=== PATIENT | male | born 1965 | race Caucasian/White ===

== ENCOUNTER 2019-04-30 17:28 | Inpatient (IN) ==
[2019-04-30 18:14] LABS: BASO# 0.05 X1000 (0.0-0.2); BASO% 0.3 % (0.0-0.8); EOS# 0.06 X1000 (0.0-0.7); EOS% 0.4 % (0.0-10.0); HEMATOCRIT 26.8 % (42.0-52.0); HEMOGLOBIN 8.5 g/dL (14.0-18.0); IMM GRAN# 0.06 X1000 (0.0-0.04); IMM GRAN% 0.4 % (0.0-0.5); LYMPH# 2.36 X1000 (1.2-3.4); LYMPH% 14.2 % (20.5-51.1); MCH 23.9 PG (27-31); MCHC 31.7 g/dL (33-37); MCV 75.3 FL (81-99); MONO% 10.8 % (1.7-9.3); MPV 9.1 FL (7.4-10.4); NEUT# 12.28 X1000 (1.4-6.5); NEUT% 73.9 % (42.2-75.2); PLT 349 X1000 (130-400); RBC 3.56 XMIL (4.7-6.1); RDW 19.9 % (11.5-14.5); WBC 16.61 X1000 (4.8-10.8)
[2019-04-30 18:26] LABS: INR 1.02; PROTIME 14.2 Seconds (11.0-16.0)
[2019-04-30 18:27] LABS: PTT 38.6 Seconds (22.3-41.8)
[2019-04-30 18:35] LABS: AGAP 14; ALB/GLOB RATIO 0.8; ALKALINE PHOSPHATASE 167 U/L (32-122); BUN 5 mg/dL (8-22); CALCIUM 8.3 mg/dL (8.8-10.2); CHLORIDE 90 mmol/L (98-107); CK PROFILE 43 U/L (24-204); COSMO 257; CREATININE 0.6 mg/dL (0.7-1.2); ESTIMATED GFR > 60; GLUCOSE 118 mg/dL (70-104); GOT 39 U/L (10-34); GPT 12 U/L (10-44); POTASSIUM 2.6 mmol/L (3.5-5.1); SODIUM 129 mmol/L (136-145); TCO2 25 mmol/L (25-35); TOTAL BILIRUBIN 0.37 mg/dL (0.20-1.00); TOTAL PROTEIN 6.7 g/dL (6.3-8.3)
--- NOTE | 2019-04-30 18:53 | Diag Imaging Result Doc PS360 ---
EXAM: CHEST-1 VIEW HISTORY: SOB/POSSIBLE SEPSIS TECHNIQUE: Portable chest single view COMPARISON: 04/19/2014 FINDINGS: There are infiltrates and cavities in the upper lungs. The one on the left has developed since the prior exam. The one on the right is fairly similar to the prior study. The lungs are well expanded. No pulmonary edema. No cardiomegaly. No pleural effusions identified. IMPRESSION: Likely cavitary pneumonia as well as fibrosis Electronically signed by Tyson Beck 04/30/2019 6:50 PM
[2019-04-30] MEDS ORDERED: TUBERSOL ID ONE (19:11)
[2019-04-30] MEDS ORDERED: ROCEPHIN 1 GM in NS 50 ML IV ONE (19:18)
[2019-04-30] MEDS ORDERED: ZITHROMAX PO ONE (19:18)
[2019-04-30] MEDS ORDERED: NS 1,000 ML IV ONE ×2 (19:19→19:20)
--- NOTE | 2019-04-30 19:23 | PROVIDER DOCUMENTATION ---
HPI-General Adult - General Chief Complaint: SEPSIS ALERT - D Stated Complaint: SOB,LEGS WEAK Time Seen by Provider: 04/30/19 19:08 Source: patient Allergies/Adverse Reactions: Patient Allergies Allergy/AdvReac Type Severity Reaction Status Date / Time celecoxib [From Celebrex] Allergy Intermediate NAUSEA/VOMI Verified 04/19/14 09:41 TING Home Medications: Home Medication List Medication Instructions Recorded Confirmed Last Taken Type Amoxicillin/Potassium Clav 1 each PO DAILY #0 tablet 04/22/14 Unknown Rx [Augmentin 875-125 Tablet] Enoxaparin [Lovenox] 40 mg SUBQ Q24H #0 syringe 04/22/14 Unknown Rx Hydrocodone/APAP 7.5 mg/325 mg 1 each PO Q4H PRN PRN #0 tablet 04/22/14 Unknown Rx [Arthur-7.5] - History of Present Illness -Gen Adult Nature of Presenting Problems: C/O no energy, and a 5 lb wt loss since helping friend move [employer] 7 days ago. No fever. Has cough prod of yellow sputum , but no hemoptysis. Has BACA, but no SOB @ rest. He initially had refused IV until labs showed he needed it. Does not remember ever having PPD Location of Pain/Injury: reports: none Similar Symptoms Previously?: No Recently seen or treated by another doctor?: No Review of Systems - Adult - REVIEW OF SYSTEMS - ADULT Constitutional: reports: see HPI, fatique, weight loss Eyes: reports: no symptoms reported Ears, Nose, Mouth & Throat: reports: no symptoms reported Cardiovascular: reports: no symptoms reported Respiratory: reports: see HPI Gastrointestinal: reports: no symptoms reported Genitourinary: reports: no symptoms reported Musculoskeletal: reports: no symptoms reported Integumentary: reports: no symptoms reported Neurological: reports: no symptoms reported Psychiatric: reports: no symptoms reported Endocrine: reports: no symptoms reported Hematologic/Lymphatic: reports: no symptoms reported Allergic/Immunologic: reports: no symptoms reported Past History - Adult - PAST MEDICAL HISTORY-ADULT Review of Records: reports: Medications Reviewed Major Childhood Illnesses: reports: denies history Cardiovascular: reports: denies history Respiratory: reports: denies history Obstetrical/Gynecological: reports: denies history Genitourinary: reports: denies history Musculoskeletal: reports: denies history Neurological: reports: denies history Psychiatric: reports: denies history Endocrine/Immune: reports: denies history - SOCIAL HISTORY Smoking: cigarettes (1/2 ppd) Physical Exam-General - PHYSICAL EXAM-ADULT Initial Vital Signs Reviewed: Yes - CONSTITUTIONAL General Appearance: appears well, alert, no apparent distress - EYES Eyes: PERRL/EOMI, pink conjunctivae - HEAD, EARS, NOSE, MOUTH & THROAT HENMT: normocephalic/atraumatic, moist mucous membranes, normal ENT inspection, pharynx normal - NECK Neck: full range of motion, supple, normal inspection - RESPIRATORY Respiratory: lungs clear, normal breath sounds, no pleuratic chest pain, no respiratory distress, no accessory muscle use - CARDIOVASCULAR Cardiovascular: no edema, no gallop, no murmur, tachycardia - GASTROINTESTINAL (ABDOMEN) Abdominal Exam: non tender, soft - MUSCULOSKELETAL Back Exam: normal inspection, no CVA tenderness, no vertebral tenderness Extremity: normal range of motion, non-tender, normal gait, normal inspection, no pedal edema - SKIN Integumentary: normal color, normal turgor, warm/dry - NEUROLOGIC Neurologic: sustainability project coordinator II-XII nml as tested, grossly normal, no motor/sensory deficits - PSYCHIATRIC Psych/Mental Status: normal mood/affect, normal thought content, normal thought process, oriented x 3 Progress - PLAN OF CARE/RESULTS Progress/Plan/Lab Results: Vital Signs - 8 hr 04/30/19 17:33 Temperature 98.4 F Pulse Rate 102 H Respiratory Rate 24 Blood Pressure 129/76 O2 Sat by Pulse Oximetry 99 Laboratory Results - last 24 hr 04/30/19 04/30/19 04/30/19 17:50 17:50 17:50 WBC 16.61 H RBC 3.56 L Hgb 8.5 L Hct 26.8 L MCV 75.3 L MCH 23.9 L MCHC 31.7 L RDW Std Deviation 19.9 H Plt Count 349 MPV 9.1 Immature Gran % (Auto) 0.4 Neut % (Auto) 73.9 Lymph % (Auto) 14.2 L [place] % (Auto) 10.8 H Eos % (Auto) 0.4 Baso % (Auto) 0.3 Immature Gran # (Auto) 0.06 H Neut # (Auto) 12.28 H Lymph # (Auto) 2.36 [place] # (Auto) 1.80 H Eos # (Auto) 0.06 Baso # (Auto) 0.05 PT INR PTT (Actin FS) Sodium 129 L Potassium 2.6 L Chloride 90 L Carbon Dioxide 25 Anion Gap 14 BUN 5 L Creatinine 0.6 L Estimated GFR/1.73 m2 > 60 BUN/Creatinine Ratio 8 Glucose 118 H Calculated Osmolality 257 Calcium 8.3 L Total Bilirubin 0.37 AST 39 H ALT 12 Alkaline Phosphatase 167 H Creatine Kinase 43 Troponin T Total Protein 6.7 Albumin 3.0 L Globulin 3.7 Albumin/Globulin Ratio 0.8 Plasma Lactate 2.9 H 04/30/19 04/30/19 17:50 17:50 WBC RBC Hgb Hct MCV MCH MCHC RDW Std Deviation Plt Count MPV Immature Gran % (Auto) Neut % (Auto) Lymph % (Auto) [place] % (Auto) Eos % (Auto) Baso % (Auto) Immature Gran # (Auto) Neut # (Auto) Lymph # (Auto) [place] # (Auto) Eos # (Auto) Baso # (Auto) PT 14.2 INR 1.02 PTT (Actin FS) 38.6 Sodium Potassium Chloride Carbon Dioxide Anion Gap BUN Creatinine Estimated GFR/1.73 m2 BUN/Creatinine Ratio Glucose Calculated Osmolality Calcium Total Bilirubin AST ALT Alkaline Phosphatase Creatine Kinase Troponin T < 0.010 Total Protein Albumin Globulin Albumin/Globulin Ratio Plasma Lactate Orders Category Date Time Status Cardiac Monitoring DIRECTED Care 04/30/19 18:01 Active IV Insertion ORDERED Care 04/30/19 18:01 Active Notify MD of + Sepsis Screen NOW Care 04/30/19 18:01 Active Notify Physician As Ordered Care 04/30/19 18:01 Active TB Skin Test Follow Up ONCE Care 05/02/19 19:11 Ordered CHEST-1 VIEW [RAD] Stat Exams 04/30/19 18:01 Completed BLOOD CULTURE [BLDCUL] Stat Lab 04/30/19 18:01 Received CBC WITH DIFF [HEME] Stat Lab 04/30/19 17:50 Completed CK PROFILE [SP CHEM] Stat Lab 04/30/19 17:50 Completed COMPREHENSIVE METABOLIC PANEL [CHEM] Stat Lab 04/30/19 17:50 Completed LACTATE, PLASMA [CHEM] Lab 04/30/19 21:15 Uncollected LACTATE, PLASMA [CHEM] Lab 05/01/19 00:15 Uncollected LACTATE, PLASMA [CHEM] Q3H Lab 04/30/19 17:50 Completed PROTIME WITH INR [COAG] Stat Lab 04/30/19 17:50 Completed PTT [COAG] Stat Lab 04/30/19 17:50 Completed TROPONIN T Stat Lab 04/30/19 17:50 Completed URINALYSIS W/POSS RFLX CULT [URINALYSIS] Stat Lab 04/30/19 18:01 Uncollected Tuberculin,Purif.prot.deriv. [Tubersol] Med 04/30/19 19:11 Once 5 units ID NOW ONE Oxygen Device Stat Oth 04/30/19 18:01 Active Result Diagrams: 04/30/19 17:50 04/30/19 17:50 - CONSULTS/PCP/HOSPITALIST Notification #1 *Consult/PCP/Hospitalist*: Varinder Time Discussed: 20:20 Consult Disposition: Will see in ED, Admit Departure - Departure Date of Disposition Decision: 04/30/19 Time of Disposition Decision: 19:26 DIAGNOSIS: Pneumonia of both upper lobes, SIRS (systemic inflammatory response syndrome), Anemia Disposition: ADMITTED INPATIENT 09 Certified Medical Emergency: Emergent Condition: Good Referrals and Follow-Ups: Kerrie Hurt CRNP [Primary Care Provider] - Discharge Education: Steps to Quit Smoking, [id number] - Critical Care Note This patient required my direct & personal management of CC.: No Attestation - Physician/ ROSA ELENA Attestation Patient care was provided by Advanced Practice Provider:: No The physician spent face to face time with patient:: Yes Advanced Practice Provider documentation review:: Supervising physician onsite and consulted in the evaluation and care of this patient. The physician did have a face to face encounter with the patient.
[2019-04-30 19:25] LABS: URINE SOURCE CLEAN CATCH
--- NOTE | 2019-04-30 19:27 | ED EKG INTERP ---
This chart was entered by Rupinder Daniel Scribe, acting as scribe for Clint Mohr MD. EKG Interpretation - EKG Time of EKG reading by physician:: 17:42 EKG Read and Signed by:: Clint Mohr EKG Interpretation (*Must complete 3 of following elements*): Abnormal Rate: 103 Rhythm: [facility] [place]: normal QRS: normal [place] Interval: normal ST Wave: normal Comments: Septal infarct, age undetermined Attestation - Physician/ ROSA ELENA Attestation Patient care was provided by Advanced Practice Provider:: No The physician spent face to face time with patient:: Yes Advanced Practice Provider documentation review:: Supervising physician onsite and consulted in the evaluation and care of this patient. The physician did have a face to face encounter with the patient. This chart was documented by the indicated scribe, (Rupinder Daniel Scribe) and accurately reflects the services I performed and decisions made by me, Clint Mohr MD, as attested by the provider's signature.
[2019-04-30 19:38] LABS: BILIRUBIN URINE NEGATIVE (NEGATIVE); BLOOD URINE NEGATIVE (NEGATIVE); COLOR YELLOW; GLUCOSE URINE NEGATIVE (NEGATIVE); KETONE URINE NEGATIVE (NEGATIVE); LEUKOCYTES URINE NEGATIVE (NEGATIVE); NITRITE URINE NEGATIVE (NEGATIVE); PH URINE 6.5; PROTEIN URINE TRACE mg/dL (NEGATIVE); SP GRAVITY URINE 1.001; TURBIDITY URINE CLEAR (CLEAR); UROBILINOGEN URINE 8 mg/dL (NORMAL)
[2019-04-30 19:40] LABS: UR EPITHELIAL CELLS <10 /HPF (<10); URINE BACTERIA NEGATIVE /HPF; URINE RBC <10 /HPF (<10); URINE WBC <10 /HPF (<10)
[2019-04-30] MEDS ORDERED: POTASSIUM CHLORIDE 20% LIQUID PO ONE (20:03)
--- NOTE | 2019-04-30 22:22 | HISTORY AND PHYSICAL ---
PRIMARY CARE PROVIDER: Kerrie Hurt. CHIEF COMPLAINT: Weakness, weight loss, coughing for several weeks. HISTORY OF PRESENTING ILLNESS: A 53-year-old male without any significant past medical history had presented to emergency department with complaint of several weeks history of worsening weakness, weight loss and cough. He states the cough was productive of yellowish material and he was not feeling well. The patient subsequently had come to the emergency department. He had imaging done which did show cavitary pneumonia. Due to his presenting symptoms, he will require admission for further management. At the time my examination patient denied any headache, fever, chills, chest pain, hemoptysis but complained of weight loss, shortness of breath and not feeling well. PAST MEDICAL HISTORY: None. PAST SURGICAL HISTORY: Left hip surgery, right carpal tunnel surgery. ALLERGIES: Celebrex. CURRENT MEDICATIONS: None. SOCIAL HISTORY: 40+ pack year history of smoking, history of alcohol abuse in the past. History of marijuana use. FAMILY HISTORY: No history of coronary disease. REVIEW OF SYSTEMS: Fourteen point review of system is as in HPI. Other systems negative. PHYSICAL EXAMINATION: GENERAL: Cooperative, friendly male resting more comfortably now. Patient looks somewhat malnourished. VITAL SIGNS: Temperature 98.4 degrees, pulse 102, respirations 24, blood pressure 129/76. HEENT: Atraumatic, normocephalic. Extraocular movements intact. PERRLA. NECK: Supple. CHEST: Bibasilar rales. CARDIOVASCULAR: Regular rate and rhythm. ABDOMEN: Soft. Positive bowel sounds. EXTREMITIES: No edema. NEUROLOGIC: He is awake, alert, oriented x3. : No bladder distention. SKIN: Warm. LABORATORIES AND STUDIES: Sodium 129, potassium 2.6, chloride 90, CO2 25, BUN is 5, creatinine 0.6, glucose is 118. WBC 16.61, hemoglobin 8.5, hematocrit 26.8, platelets 349,000. ASSESSMENT: A 53-year-old male without any significant past medical history presented to emergency department several weeks history of worsening productive cough, weight loss and weakness. He was evaluated in the emergency department. He had imaging done which did show cavitary pneumonia and also laboratory showed that he was hypokalemic. Due to his presenting symptoms he will require admission further management. 1. Cavitary pneumonia. 2. Generalized weakness. 3. Hypokalemia. PLAN: 1. We will admit patient to medical floor with telemetry. 2. We will keep him in isolation till we obtain results of his TB testing. 3. We will check blood cultures. Start patient on IV antibiotics. 4. Continue with gentle hydration. 5. Replace his electrolytes and monitor potassium. 6. We will put patient on DVT prophylaxis SCD. 7. We will continue to follow and reassess. Make further recommendation based on patient's clinical course. cc: Benedict Reeder MD
[2019-05-01] MEDS ORDERED: ZITHROMAX 500 MG/NS 500 MG/250 ML IVPB IV SCH (02:06)
[2019-05-01] MEDS ORDERED: ROCEPHIN 1 GM in NS 50 ML IV SCH (02:06)
[2019-05-01] MEDS: NS + KCL 20 MEQ 1,000 ML IV SCH ×4 (03:01→18:14)
[2019-05-01 06:23] LABS: BASO# 0.04 X1000 (0.0-0.2); BASO% 0.2 % (0.0-0.8); EOS# 0.02 X1000 (0.0-0.7); EOS% 0.1 % (0.0-10.0); HEMATOCRIT 25.9 % (42.0-52.0); IMM GRAN# 0.05 X1000 (0.0-0.04); IMM GRAN% 0.3 % (0.0-0.5); LYMPH# 1.33 X1000 (1.2-3.4); LYMPH% 7.7 % (20.5-51.1); MCH 23.7 PG (27-31); MCHC 30.9 g/dL (33-37); MCV 76.6 FL (81-99); MONO# 1.54 X1000 (0.11-0.59); MONO% 8.9 % (1.7-9.3); MPV 9.4 FL (7.4-10.4); NEUT# 14.33 X1000 (1.4-6.5); NEUT% 82.8 % (42.2-75.2); PLT 320 X1000 (130-400); RBC 3.38 XMIL (4.7-6.1); RDW 20.3 % (11.5-14.5); WBC 17.31 X1000 (4.8-10.8)
[2019-05-01 06:45] LABS: AGAP 11; BUN 3 mg/dL (8-22); CALCIUM 7.4 mg/dL (8.8-10.2); CHLORIDE 100 mmol/L (98-107); COSMO 261; CREATININE 0.4 mg/dL (0.7-1.2); ESTIMATED GFR > 60; GLUCOSE 95 mg/dL (70-104); POTASSIUM 3.3 mmol/L (3.5-5.1); SODIUM 132 mmol/L (136-145); TCO2 21 mmol/L (25-35)
[2019-05-01] MEDS ORDERED: ATIVAN IV PRN (06:46)
[2019-05-01] MEDS ORDERED: VANCOMYCIN IV PER PHARMACY MISC SCH (07:00)
--- NOTE | 2019-05-01 07:54 | EKG Report ---
Test Performed on : 04/30/2019 5:33:51 PM Test Reason : ED. NO EKG ORDER FOR MUSE Blood Pressure : / mmHG Vent. Rate : 103 BPM Atrial Rate : 103 BPM P-R Int : 142 ms QRS Dur : 078 ms QT Int : 354 ms P-R-T Axes : 079 076 082 degrees QTc Int : 463 ms Sinus tachycardia. Septal infarct , age undetermined Abnormal ECG When compared with ECG of 20-APR-2014 07:32, No significant change was found Unconfirmed Result
--- NOTE | 2019-05-01 07:56 | EKG Report ---
Test Performed on : 04/30/2019 9:22:55 PM Test Reason : ED. NO EKG ORDER FOR MUSE Blood Pressure : / mmHG Vent. Rate : 111 BPM Atrial Rate : 111 BPM P-R Int : 142 ms QRS Dur : 072 ms QT Int : 362 ms P-R-T Axes : 070 073 083 degrees QTc Int : 492 ms Sinus tachycardia. Otherwise normal ECG When compared with ECG of 30-APR-2019 17:33, (Unconfirmed) Criteria for Septal infarct are no longer present Unconfirmed Result
[2019-05-01] MEDS: ZOSYN 3.375 GM in NS 50 ML IV SCH ×3 (08:06→20:13)
--- NOTE | 2019-05-01 08:19 | INFECTIOUS DISEASE CONSULT REP ---
DATE: 05/01/2019 DISCUSSION: The patient tells me that in the past week, he has developed a decrease in his energy, and a cough productive of a [id number] sputum. He has lost 2 pounds in the past week. He is not having night sweats. He has not noticed any blood in his sputum. IMAGING AND LABORATORY DATA: His laboratory data thus far shows a CBC with a white count of 17,310, hemoglobin 8, and platelet count 320,000. Creatinine is 0.6. GFR is greater than 60. Alkaline phosphatase is 167. Urinalysis shows no white cells or bacteria. Blood cultures are pending. Chest x-ray shows bilateral upper lobe cavitary infiltrates. PAST MEDICAL HISTORY/REVIEW OF SYSTEMS: Eyes and Ears: He wears glasses. His hearing is okay. Bones/Joints/Muscles: He has had pain in his left knee for years. It occasionally swells. He does not have any muscle aches. Neck: No stiffness. Respiratory: See present illness. GI: No nausea, vomiting, or diarrhea. : No dysuria or flank pain. Endocrine: The patient is not a diabetic, and he does not have any thyroid disease. Integument: No rash. PREVIOUS HOSPITALIZATIONS AND OPERATIONS: He fractured his left hip, and has had surgery on it. He also has had a right arm carpal tunnel surgery. MEDICAL DISEASES: Positive for osteoarthritis. Negative for diabetes. INFECTIOUS DISEASE HISTORY: Positive for pneumonia as a child. No history of urinary tract infection. FAMILY HISTORY: Positive for hypertension and cancer. SOCIAL HISTORY[place] . He has dogs for pets. The patient is disabled. He smokes cigarettes, drinks alcoholic beverages, and uses marijuana. ALLERGIES: He is allergic to Celebrex. HOME MEDICATIONS: The only one listed is Goody's powder. PHYSICAL EXAMINATION: Vital Signs: Temperature is 98.8 degrees, pulse 118, respirations 20, blood pressure 144/86. The patient weighs 102 pounds. General: This is a chronically ill and malnourished-appearing, middle-aged male. He is in no acute distress. HEENT: He can hear my spoken words and see near objects. He does not have any white patches in his mouth. His teeth seem to be in poor dental repair. Neck: No meningismus. Lungs: Clear to auscultation. Cardiovascular: Heart rate was regular and rapid. Abdomen: Soft and nontender. Neurologic: The patient is alert. He can move his extremities. There is no tremor. His sensation is intact to touch. His memory as regarding his medical history seems intact. Integument: No rash noted. CONCLUSION: The patient is admitted to the hospital with bilateral upper lobe cavitary pneumonia. I think tuberculosis certainly is a consideration. Also, the patient tells me that he drinks quite a bit of alcohol, and he may have developed an aspiration pneumonia. RECOMMENDATIONS: I agree with putting on a skin test and getting a QuantiFERON. I have ordered sputum for acid-fast smear and culture, and I have also ordered sputum for regular bacterial culture. I have discontinued Rocephin and azithromycin, and instead I put the patient on vancomycin and Zosyn. Some of the side effects of the antibiotics, including rash, diarrhea, renal toxicity, and ototoxicity have been explained to the patient, who agrees with treatment. Thank you for the consult. cc: Mike Metz MD
[2019-05-01] MEDS ORDERED: VANCOMYCIN 1,600 MG in NS 250 ML IV ONE (09:00)
[2019-05-01] MEDS ORDERED: LIBRIUM PO PRN (14:56)
[2019-05-01] MEDS ORDERED: KLOR-CON PO ONE (14:58)
--- NOTE | 2019-05-01 15:11 | PROGRESS NOTE ---
DATE: 05/01/2019 SUBJECTIVE: The patient resting in bed. OBJECTIVE: Vital signs: Temperature 98.6 degrees, pulse is 113, respiratory rate 16, blood pressure 145/92, oxygen saturation 100%. HEENT: Atraumatic, normocephalic. Cardiovascular System: S1, S2. Respiratory system has evidence of good air entry bilaterally. Abdomen is soft, nontender. No masses felt. Extremities: No evidence of edema. Central Nervous System: No obvious focal deficits noted. LABORATORIES: WBC 17.31, hematocrit is 25.9 ,with a platelet count of 320. Sodium is 132, potassium 3.3, chloride 100, bicarbonate 21, BUN is 3, creatinine 0.4. ASSESSMENT AND PLAN: 1. Cavitary pneumonia. Follow up on sputum as well as blood cultures. The patient currently on isolation. Workup for TB in progress. Infectious Disease managing antibiotics. 2. Anemia. We will check iron studies as well as B12 and folate levels. 3. Hypokalemia. Replace potassium. Check magnesium level. 4. Alcoholism. Maintain patient on delirium tremens prophylaxis, along with thiamine, folic acid, as well as multivitamin. Check magnesium and phosphorus levels and correct those if needed. 5. Deep vein thrombosis prophylaxis. Sequential compression devices. 6. Gastrointestinal prophylaxis. Proton pump inhibitor. cc: Josse Loyola MD
[2019-05-01 15:53] LABS: IRON SATURATION 10 %; TIBC 206 ug/dL; TOTAL IRON 21 ug/dL (53-167); UNBOUND IRON 185 ug/dL (112-346)
[2019-05-01 16:12] LABS: FERRITIN 38 ng/mL (30-400)
[2019-05-01] MEDS: VANCOMYCIN 1,250 MG in NS 250 ML IV SCH (22:46)
[2019-05-02] MEDS: ZOSYN 3.375 GM in NS 50 ML IV SCH ×5 (01:45→23:20)
[2019-05-02] MEDS: PROTONIX PO SCH (06:54)
[2019-05-02 07:17] LABS: BASO# 0.06 X1000 (0.0-0.2); BASO% 0.5 % (0.0-0.8); EOS# 0.05 X1000 (0.0-0.7); EOS% 0.4 % (0.0-10.0); HEMATOCRIT 25.6 % (42.0-52.0); HEMOGLOBIN 7.7 g/dL (14.0-18.0); IMM GRAN# 0.03 X1000 (0.0-0.04); IMM GRAN% 0.2 % (0.0-0.5); MCH 23.7 PG (27-31); MCHC 30.1 g/dL (33-37); MCV 78.8 FL (81-99); MONO# 1.19 X1000 (0.11-0.59); MONO% 9.7 % (1.7-9.3); MPV 9.5 FL (7.4-10.4); NEUT# 9.81 X1000 (1.4-6.5); NEUT% 80.2 % (42.2-75.2); PLT 301 X1000 (130-400); RBC 3.25 XMIL (4.7-6.1); RDW 21.1 % (11.5-14.5); WBC 12.24 X1000 (4.8-10.8)
[2019-05-02 07:39] LABS: AGAP 11; BUN 3 mg/dL (8-22); CALCIUM 7.7 mg/dL (8.8-10.2); CHLORIDE 107 mmol/L (98-107); COSMO 272; CREATININE 0.7 mg/dL (0.7-1.2); ESTIMATED GFR > 60; GLUCOSE 96 mg/dL (70-104); MAGNESIUM 1.2 mg/dL (1.5-2.7); PHOSPHORUS 1.7 mg/dL (2.7-4.5); SODIUM 138 mmol/L (136-145); TCO2 20 mmol/L (25-35); TOTAL IRON 23 ug/dL (53-167)
[2019-05-02] MEDS: VANCOMYCIN 1,250 MG in NS 250 ML IV SCH ×2 (09:07→21:31)
[2019-05-02] MEDS: CENTRUM SILVER PO SCH (09:07)
[2019-05-02] MEDS: VITAMIN B-1 PO SCH (09:07)
[2019-05-02] MEDS: FOLIC ACID PO SCH (09:07)
[2019-05-02] MEDS ORDERED: MAGNESIUM SULFATE 2 GM/S.W.I. 2 GM/50 ML IVPB IV ONE (11:30)
--- NOTE | 2019-05-02 11:50 | PROGRESS NOTE ---
DATE: 05/02/2019 SUBJECTIVE: The patient is resting in bed. OBJECTIVE: Vital signs: Temperature 97.5 degrees, pulse is 97, respiratory rate 16, blood pressure 141/76, O2 saturation is 98%. HEENT: Atraumatic, normocephalic. Cardiovascular: S1, S2. Respiratory system: There is evidence of good air entry bilaterally. Abdomen: Soft, nontender. No masses felt. Extremities: No evidence of edema. Central nervous system: No obvious focal deficit noted. LAB: WBC 12.24, hematocrit 35.3, Sodium is 138, potassium 4.0, chloride is 107, bicarb is 28, BUN is 3, creatinine 0.7. Calcium is 7.7. Phosphorus 1.7. Magnesium is 1.2. Iron is 23. ASSESSMENT AND PLAN: 1. Cavitary pneumonia. Continue current antibiotic regimen. Follow up on sputum as well as blood cultures. Infectious Disease following. 2. Anemia. Follow up on hemoglobin and hematocrit. Transfuse packed red blood cells if needed. Replace folic acid as well as iron levels. 3. Alcoholism. Maintain patient on delirium tremens prophylaxis along with thiamine, folic acid, as well as multivitamin. Correct electrolyte abnormalities, especially low magnesium and phosphorus level. 4. Deep vein thrombosis prophylaxis. Sequential compression devices. 5. Gastrointestinal prophylaxis. Proton pump inhibitor. cc: Josse Loyola MD MTDD
[2019-05-02] MEDS: NEUTRA-PHOS PO SCH ×3 (13:08→21:31)
--- NOTE | 2019-05-02 14:35 | INFECTIOUS DISEASE PROGRESS NO ---
DATE: 05/02/2019 PRESENT ILLNESS: The patient is admitted to the hospital with a cavitary pneumonia. MEDICATIONS: The patient is receiving a combination of vancomycin and Zosyn. PHYSICAL EXAMINATION: Vital Signs: Temperature is 97.5 degrees, pulse 97, respirations 18, blood pressure is 141/76. General: This is an ill and malnourished-appearing, middle-aged male. He is in no acute distress. Head, Eyes, Ears, Nose, and Throat: He can hear my spoken words and see near objects. He does not have any white coating on his tongue. Neck: No meningismus. Lungs: Clear to auscultation. Cardiovascular: Heart rate is regular. Abdomen: Soft and nontender. Neurologic: The patient is alert. He can move his extremities. He does not have any tremor. LAB AND X-RAY: There is no new radiographic study for today. The patient's TB skin test, and this is a reading roughly at 34 hours, is completely negative. Sputum culture is negative. One out of two blood cultures is growing a coagulase-negative staphylococcus. This is a contaminant and does not require antibiotic treatment. The patient's CBC shows the white count is down to 12,240, hemoglobin 7.7, and platelet count 301,000. Creatinine is 0.7. GFR is greater than 60. ASSESSMENT AND PLAN: The patient has a cavitary pneumonia. I doubt that it is tuberculosis because his skin test at 34 hours is completely negative and his white blood cell count is coming down and he has not had any fever. As mentioned above, the patient has one of two blood cultures positive for a coagulase-negative staphylococcus. This is a contaminant and does not merit antibiotic treatment. My plan is to continue the current antibiotics. I will have the final reading of the skin test tomorrow. Hopefully, the QuantiFERON gold test result will be back tomorrow also. If the QuantiFERON test and the skin test are negative, then I think that we can definitely eliminate tuberculosis and the patient will not have to be in isolation. I am going to go ahead and repeat the patient's chest x-ray and CBC. If those are both looking better, then possibly the patient could go home on antibiotics. COMORBIDITIES: The patient's comorbidity, really he does not have one except that when I first saw him, he looked chronically ill and malnourished. Whether this is the usual way he looks or he has become that way is hard to say. cc: Mike Metz MD
[2019-05-03] MEDS: ZOSYN 3.375 GM in NS 50 ML IV SCH ×3 (05:42→21:06)
[2019-05-03] MEDS: PROTONIX PO SCH ×2 (05:46→07:48)
--- NOTE | 2019-05-03 07:17 | Diag Imaging Result Doc PS360 ---
EXAM: CHEST-1 VIEW 05/03/2019 HISTORY: pneumonia TECHNIQUE: AP portable at 0527 COMMENT: There are alveolar opacities in both upper lobes. There is some retraction of the elias superiorly particularly on the right. There is apical pleural thickening on the right. There is cavitation in the opacity in the left upper lobe. The left upper lobe opacity is much worse than on 04/19/2014. There is also a nodule seen in the lateral mid lung on the left which was not present at that time. Much of the abnormality in the right apex was present at the time of that examination. The heart size and pulmonary vascularity are within normal limits. IMPRESSION: Cavitary pneumonia in the left upper lobe. Chronic pleural and parenchymal changes with volume loss in the right apex. New pulmonary nodule on the left. The possibility of reactivation granulomatous disease should be considered. Electronically signed by Ran Prakash 05/03/2019 7:14 AM
[2019-05-03 07:27] LABS: BASO# 0.08 X1000 (0.0-0.2); BASO% 0.7 % (0.0-0.8); EOS# 0.13 X1000 (0.0-0.7); EOS% 1.1 % (0.0-10.0); HEMATOCRIT 25.6 % (42.0-52.0); HEMOGLOBIN 7.7 g/dL (14.0-18.0); IMM GRAN# 0.03 X1000 (0.0-0.04); IMM GRAN% 0.3 % (0.0-0.5); LYMPH# 1.16 X1000 (1.2-3.4); LYMPH% 10.2 % (20.5-51.1); MCH 23.7 PG (27-31); MCHC 30.1 g/dL (33-37); MCV 78.8 FL (81-99); MONO# 1.12 X1000 (0.11-0.59); MONO% 9.9 % (1.7-9.3); MPV 9.3 FL (7.4-10.4); NEUT# 8.81 X1000 (1.4-6.5); NEUT% 77.8 % (42.2-75.2); PLT 349 X1000 (130-400); RBC 3.25 XMIL (4.7-6.1); RDW 21.4 % (11.5-14.5); WBC 11.33 X1000 (4.8-10.8)
[2019-05-03 07:37] LABS: AGAP 14; BUN 4 mg/dL (8-22); CALCIUM 8.2 mg/dL (8.8-10.2); CHLORIDE 100 mmol/L (98-107); COSMO 267; CREATININE 1.2 mg/dL (0.7-1.2); ESTIMATED GFR > 60; GLUCOSE 94 mg/dL (70-104); POTASSIUM 3.4 mmol/L (3.5-5.1); SODIUM 135 mmol/L (136-145); TCO2 21 mmol/L (25-35)
[2019-05-03] MEDS: ICAR-C PO SCH (09:17)
[2019-05-03] MEDS: CENTRUM SILVER PO SCH (09:17)
[2019-05-03] MEDS: VANCOMYCIN 1,250 MG in NS 250 ML IV SCH (09:17)
[2019-05-03] MEDS: VITAMIN B-1 PO SCH (09:17)
[2019-05-03] MEDS: FOLIC ACID PO SCH (09:18)
[2019-05-03] MEDS: NEUTRA-PHOS PO SCH ×3 (09:18→21:06)
[2019-05-03] MEDS ORDERED: KLOR-CON PO ONE (12:39)
--- NOTE | 2019-05-03 13:05 | PROGRESS NOTE ---
DATE: 05/03/2019 SUBJECTIVE: The patient is resting in bed, not in any obvious distress. OBJECTIVE: Vital signs: Temperature 97.5 degrees, pulse 108, respiratory rate 20, blood pressure 150/90, oxygen saturation is 99%. HEENT: Atraumatic, normocephalic. Cardiovascular: S1, S2. Respiratory system: Has evidence of good air entry bilaterally. Abdomen: Soft, nontender. No masses felt. Extremities: No evidence of edema. Central nervous system: No obvious focal deficits noted. LABS: WBC is 11.3, hematocrit 25.6, with a platelet count of 349,000. Sodium is 135, potassium 3.4, chloride 100, bicarb 21, BUN is 4, Folate level is 4.0, which is low. ASSESSMENT AND PLAN: 1. Cavitary pneumonia. Continue antibiotics as recommended by Infectious Disease. Follow up on TB skin test as well as QuantiFERON gold test. 2. Anemia. Follow up on hemoglobin and hematocrit. Transfuse packed red blood cells if needed. Continue to replace folic acid as well as iron levels. 3. Alcoholism. Maintain patient on delirium tremens prophylaxis along with thiamine, folic acid, as well as multivitamin. Replace magnesium and phosphorus accordingly. 4. Deep vein thrombosis prophylaxis. Sequential compression devices. 5. Gastrointestinal prophylaxis. Proton pump inhibitor. cc: Josse Loyola MD MTDD
[2019-05-03 15:11] LABS: ALB/GLOB RATIO 0.7; ALBUMIN 2.3 g/dL (3.5-5.0); CREATININE 1.3 mg/dL (0.7-1.2); MAGNESIUM 1.6 mg/dL (1.5-2.7); PHOSPHORUS 4.4 mg/dL (2.7-4.5); POTASSIUM 4.2 mmol/L (3.5-5.1); TOTAL BILIRUBIN 0.25 mg/dL (0.20-1.00); TOTAL PROTEIN 5.7 g/dL (6.3-8.3)
--- NOTE | 2019-05-03 21:12 | INFECTIOUS DISEASE PROGRESS NO ---
DATE: 05/03/2019 PRESENT ILLNESS: The patient has a cavitary pneumonia. MEDICATIONS: Patient is on vancomycin and Zosyn. PHYSICAL EXAMINATION: Vital Signs: Temperature is 97.5 degrees, pulse 108, respirations 20, blood pressure 152/90. General: This is an ill and somewhat malnourished-appearing, middle-aged male. He is in no acute distress and he tells me that he is feeling much better each day. Head/eyes/ears/nose/throat: He can hear my spoken words and see near objects. He does not have any white patches in his mouth. Neck: It does not hurt his neck to have him move his head. Lungs: Clear to auscultation. Cardiovascular: Regular heart rate. Abdomen: Soft and nontender. LAB AND X-RAY: The patient's tuberculin skin test is totally negative. There is no induration [place] [address], hemoglobin 7.7, and platelet count 349,000. Creatinine is 1.2. GFR is greater than 60. Sputum grew normal roxanne. Chest x-ray shows the cavitary left upper lobe pneumonia has not changed. ASSESSMENT AND PLAN: Patient has a cavitary pneumonia. He is improving, which I think pretty much eliminates tuberculosis because he is not receiving any anti-tuberculosis treatment. I think he has a bacterial pneumonia, probably caused by aspiration. The patient's QuantiFERON test is not yet back. Tomorrow, if it is back and if it is negative, I think the patient can be discharged on a combination, I would suggest of Augmentin and Cipro. I will plan on following up with the patient by asking him to come to my office at which time he will be examined and will repeat the chest x-ray. COMORBIDITIES: The patient looks to me to be somewhat malnourished. cc: Mike Metz MD
[2019-05-04] MEDS: NEUTRA-PHOS PO SCH ×2 (01:02→09:27)
[2019-05-04] MEDS: ZOSYN 3.375 GM in NS 50 ML IV SCH ×2 (01:03→08:22)
[2019-05-04 04:09] VITALS: BP 148/77
[2019-05-04 07:26] LABS: BASO# 0.05 X1000 (0.0-0.2); BASO% 0.5 % (0.0-0.8); EOS# 0.13 X1000 (0.0-0.7); EOS% 1.3 % (0.0-10.0); HEMATOCRIT 26.5 % (42.0-52.0); IMM GRAN# 0.02 X1000 (0.0-0.04); IMM GRAN% 0.2 % (0.0-0.5); LYMPH# 1.24 X1000 (1.2-3.4); LYMPH% 12.4 % (20.5-51.1); MCH 23.8 PG (27-31); MCHC 30.2 g/dL (33-37); MCV 78.9 FL (81-99); MONO# 1.05 X1000 (0.11-0.59); MONO% 10.5 % (1.7-9.3); MPV 8.8 FL (7.4-10.4); NEUT# 7.52 X1000 (1.4-6.5); NEUT% 75.1 % (42.2-75.2); PLT 352 X1000 (130-400); RBC 3.36 XMIL (4.7-6.1); WBC 10.01 X1000 (4.8-10.8)
[2019-05-04 07:47] LABS: CALCIUM 8.3 mg/dL (8.8-10.2); CREATININE 1.3 mg/dL (0.7-1.2); POTASSIUM 4.2 mmol/L (3.5-5.1)
[2019-05-04] MEDS: PROTONIX PO SCH (08:29)
[2019-05-04] MEDS: CENTRUM SILVER PO SCH (09:27)
[2019-05-04] MEDS: FOLIC ACID PO SCH (09:27)
[2019-05-04] MEDS: ICAR-C PO SCH (09:27)
[2019-05-04] MEDS: VITAMIN B-1 PO SCH (09:27)
--- NOTE | 2019-05-04 14:41 | INFECTIOUS DISEASE PROGRESS NO ---
DATE: 05/04/2019 PRESENT ILLNESS: Mr. Mcqueen is being treated for a cavitary pneumonia. MEDICATIONS: He is receiving Zosyn 3.375 gram IV every 6 hours. PHYSICAL EXAMINATION: Vital Signs: Temperature is 98.8 degrees, pulse rate 104 respiratory rate 20, blood pressure 148/77, O2 saturation is 98% on room air. General: This is a thin, chronically ill-appearing, middle-aged gentleman. He is lying in bed, currently in no acute distress. HEENT: Atraumatic, normocephalic. Oral mucous membranes are pink and moist. Dentition is poor. Conjunctivae are pale. Neck: Supple. Trachea is midline. Respiratory: Lung sounds are clear to auscultation bilaterally. No work of breathing is noted. Occasional dry cough. Cardiovascular: Heart rate and rhythm are regular and fast. Sinus tach on the monitor. Abdomen: Soft, flat, nontender. Bowel sounds are active. Neurologic: He is awake, alert, and oriented and can ambulate without assistance. LABORATORY AND X-RAY: Today his white count is 10.01 hemoglobin 8, platelet count 352,000. Creatinine 1.3, GFR 58. His sputum culture has shown no growth on this admission. No imaging reports today. ASSESSMENT AND PLAN: Mr. Mcqueen is being treated for a cavitary pneumonia. He is really wanting to go home at this point. His PPD skin test shows no indication of problems. The QuantiFERON test is still not back. We will continue to follow this. His white count is normal, and he has been afebrile. The plan will be to discharge him today on Augmentin and Cipro for a total of 3 weeks, after which time we will follow up with him in the office to repeat the chest x-ray. The prescriptions for Augmentin and Cipro have been placed on the patient's chart. I have spoken with him about taking these with food twice daily and to call our office for an appointment in 3 weeks, and for any problems he may encounter. He stated understanding of the instructions. These plans have been discussed with and recommended by Dr. Mezt. COMORBIDITIES: For Mr. Mcqueen include alcoholism with electrolyte abnormalities and malnutrition, cigarette smoking, and COPD. Dictated by FUAD Toussaint for Mike Metz MD cc: MD KAREEN Mark
--- NOTE | 2019-05-05 04:07 | DISCHARGE SUMMARY ---
ADMISSION DATE: 05/01/2019 DISCHARGE DATE: 05/04/2019 PRINCIPAL DIAGNOSIS: Cavitary pneumonia. SECONDARY DIAGNOSES: 1. Iron deficiency anemia. 2. Folic acid deficiency. 3. Hypophosphatemia, hypomagnesemia. 4. Alcoholism. DISCHARGE MEDICATIONS: Include the following. 1. Augmentin 875 mg every 12 hours as recommended. 2. Cipro 500 mg every 12 hours as recommended. 3. Folic acid 1 mg p.o. daily. 4. Icar-C 1 p.o. daily. 5. Multivitamin 1 p.o. daily. 6. Thiamine 100 mg p.o. daily. CONSULTATIONS: Done during this hospital, Dr. Mike Metz, infectious disease. PROCEDURES DONE: No major procedures were done. HOSPITAL COURSE: Mr. Immanuel Mcqueen is a 53-year-old male without any significant past medical history. He was admitted to the hospital because of cough as well as weight loss. X-ray chest shows likely cavitary pneumonia as well as fibrosis. The patient was placed on antibiotics. He was seen by the Infectious Disease team. There was concern for tuberculosis. TB skin test was negative. QuantiFERON gold test pending at the time of this is discharge summary. All other events noted during the course of the hospital stay. The patient was noted to have hypomagnesemia, as well as hypophosphatemia which was replaced accordingly. Also, he was noted to be deficient in iron and folic acid, and these were being replaced accordingly. At this time, patient has done well, he is stable. He can now be discharged back home. DISCHARGE PHYSICAL EXAMINATION: Vital signs: During my evaluation today, his vital signs as follows: Temperature 98.8 degrees, pulse 104, respiratory rate 20, blood pressure 148/77, oxygen saturation 98%. HEENT: Atraumatic, normocephalic. Cardiovascular: S1, S2. Respiratory system: He has evidence of good air entry bilaterally. Abdomen: Soft, nontender. No masses palpated. Extremities: No evidence of edema. Central nervous system: No obvious focal deficits noted. DISCHARGE INSTRUCTIONS: The patient can be discharged home today. He will continue oral antibiotics in the outpatient and follow up with Dr. Mike Metz. The patient will also be placed on iron replacement and I will get him to follow up with the Dr. Lau, customer strategy manager, for GI endoscopic studies in the outpatient. Diet will be regular. Activity will be as tolerated. He is expected to take his discharge medications as noted above. cc: Josse Loyola MD
== END 2019-05-04 13:58 | disposition home or self-care (01) | DRG 194 ==
LOC: ED 17:28 → 4N 05-01 01:41 → SUATTDRO 05-01 01:41
PROVIDERS: ATTEND Internal Medicine
CPT/HCPCS: 71010; 71045; 80048; 80053; 81001; 82550; 82607; 82728; 82746; 83540; 83550; 83605; 83735; 84100; 84443; 84484; 85025; 85610; 85730; 86480; 86580; 87040; 87070; 87205; 89220; 93005; 94761; A9270; J0456; J0696; J2543; J3370; J3475; J3480; J7030; J7050